=== PATIENT | female | born 1950 | race Hispanic/Latino ===

== ENCOUNTER 2018-04-02 08:03 | Day surgery (SDC) | payer OTHER ==
[~2018-04-02] VITALS: Ht 152.4 cm; Wt 67.9 kg
[~2018-04-02 08:03] MED LIST: ASPI-555 PO; ATEN100T PO; ATOR-2 PO; CALC-724 PO; DAPA1TAB5 PO; ESOM40CA54 PO; FLUTICASONE NASAL; GLIP10TA9 PO; HYOS-14 PO; LISI40TA4 PO; NATE120T9 PO; SITA100T12 PO; SODIUM CHLORIDE 0.9% 1000ML 1,000 ML IV ONE
[2018-04-02 08:54] VITALS: BP 138/68
[2018-04-02] MEDS ORDERED: PROPOFOL 10 MG/ML 20ML VIAL IV ONE ×2 (10:07)
[2018-04-02 10:25] VITALS: BP 84/37
[2018-04-02 10:50] VITALS: BP 120/46
== END 2018-04-02 11:00 ==
LOC: DAH 08:03 → ENDO 08:03
PROVIDERS: ATTEND Internal Medicine Gastroenterology
DX: R19.7 Diarrhea, unspecified (principal); Z86.010 Personal history of colon polyps; K21.9 Gastro-esophageal reflux disease without esophagitis; I10 Essential (primary) hypertension; I25.10 Atherosclerotic heart disease of native coronary artery without angina pectoris; E11.9 Type 2 diabetes mellitus without complications; E78.5 Hyperlipidemia, unspecified; Z95.5 Presence of coronary angioplasty implant and graft; Z98.890 Other specified postprocedural states; Z79.84 Long term (current) use of oral hypoglycemic drugs; Z79.899 Other long term (current) drug therapy; Z88.8 Allergy status to other drugs, medicaments and biological substances; E66.9 Obesity, unspecified
CPT/HCPCS: 45378; 82948 ×2; 93005; A4606; J2704 ×2; J7030